=== PATIENT | female | born 1975 | race Caucasian/White ===

== ENCOUNTER 2022-12-09 09:14 | Day surgery (SDC) | payer OTHER ==
[~2022-12-09] VITALS: Ht 165.1 cm; Wt 63.5 kg
[2022-12-09] MEDS ORDERED: diphenhydrAMINE 50 MG/ML VIAL ONE (10:23)
[2022-12-09] MEDS ORDERED: fentaNYL citrate 0.05 MG/ML VIAL ONE (10:23)
[2022-12-09] MEDS ORDERED: LIDOCAINE 2% 100 MG/5 ML UJET TP ONE (10:24)
[2022-12-09] MEDS ORDERED: MIDAZOLAM 5 MG/5 ML VIAL ONE (10:24)
[2022-12-10] MEDS ORDERED: fentaNYL citrate 0.05 MG/ML VIAL IVP ONE (10:50)
[2022-12-10] MEDS ORDERED: MIDAZOLAM 2 MG/2 ML VIAL IVP ONE (10:50)
[2022-12-10] MEDS ORDERED: diphenhydrAMINE 50 MG/ML VIAL IVP ONE (10:50)
[2022-12-10] MEDS ORDERED: LIDOCAINE 2% 100 MG/5 ML UJET TP ONE (10:50)
== END 2022-12-09 11:12 | disposition home or self-care (01) ==
LOC: MDS 09:14 → MMU 09:16 → MDS 11:12
PROVIDERS: ATTEND Internal Medicine Gastroenterology
DX: K62.5 Hemorrhage of anus and rectum (principal); I10 Essential (primary) hypertension; F41.9 Anxiety disorder, unspecified; Z98.51 Tubal ligation status; Z88.0 Allergy status to penicillin; Z88.1 Allergy status to other antibiotic agents; Z79.899 Other long term (current) drug therapy
CPT/HCPCS: 45378; J1200; J2250; J3010